=== PATIENT | female | born 1985 | race Caucasian/White ===

== ENCOUNTER 2017-12-15 17:12 | Emergency (ER) | payer MEDICAID ==
[~2017-12-15 17:12] MED LIST: Sodium Chloride 0.9% 10 ML Syringe FLUSH PRN
--- NOTE | 2017-12-15 17:12 | EDM.PDOC ---
ED HPI GENERAL MEDICAL PROBLEM - General Chief Complaint: Chest Pain Stated Complaint: CHEST PAINS AND SOB [id number] Time Seen by Provider: 12/15/17 17:11 Source of Information: Reports: Patient, RN, RN Notes Reviewed History Limitations: Reports: No Limitations - History of Present Illness INITIAL COMMENTS - FREE TEXT/NARRATIVE: C/O sudden onset of chest pain with shortness of breath shortly after she became stressed out dealing with her children. Onset: Today Duration: Constant Location: Reports: Chest Quality: Reports: Pressure Severity: Severe Improves with: Reports: None Worsens with: Reports: None Associated Symptoms: Reports: No Other Symptoms Chest Pain Score (Numeric/FACES): 9 - Related Data Allergies Allergy/AdvReac Type Severity Reaction Status Date / Time No Known Allergies Allergy Verified 12/15/17 17:11 Home Meds: Home Meds . [No Known Home Meds] 08/12/15 [History] Past Medical History Psychiatric History: Reports: Anxiety, Panic Attack - Past Surgical History GI Surgical History: Reports: Colostomy Social & Family History - Family History Family Medical History: Noncontributory - Living Situation & Occupation Living situation: Reports: , with Family ED ROS GENERAL - Review of Systems Review Of Systems: ROS reveals no pertinent complaints other than HPI. ED EXAM, GENERAL - Physical Exam Exam: See Below Exam Limited By: No Limitations General Appearance: Alert, Anxious, Obese Eye Exam: Bilateral Eye: Normal Inspection Ears: Hearing Grossly Normal Nose: Normal Inspection, Normal Mucosa, No Blood Throat/Mouth: Normal Inspection, Normal Lips, Normal Teeth, Normal Gums, Normal Oropharynx, Normal Voice, No Airway Compromise Head: Atraumatic, Normocephalic Neck: Normal Inspection, Supple, Non-Tender, Full Range of Motion. No: Lymphadenopathy (L), Lymphadenopathy (R) Respiratory/Chest: No Respiratory Distress, Lungs Clear, Normal Breath Sounds, No Accessory Muscle Use, Chest Non-Tender Cardiovascular: Normal Peripheral Pulses, Regular Rate, Rhythm, No Edema, No Gallop, No JVD, No Murmur, No Rub GI/Abdominal: Normal Bowel Sounds, Soft, Non-Tender, No Distention, No Abnormal Bruit. No: Guarding, Rigid, Rebound (Female) Exam: Deferred Rectal (Female) Exam: Deferred Back Exam: Normal Inspection Extremities: Normal Inspection, Normal Range of Motion, Non-Tender, Normal Capillary Refill, No Pedal Edema Neurological: Alert, Oriented, CN II-XII Intact, Normal Cognition, Normal Gait, No Motor/Sensory Deficits Psychiatric: Anxious, Tearful Skin Exam: Warm, Dry, Intact, Normal Color, No Rash EKG INTERPRETATION EKG Date: 12/15/17 Time: 17:10 Rhythm: Other (SR) Rate (Beats/Min): 67 [place]: Normal P-Wave: Present QRS: Other (inferior Q-waves) ST-T: Normal QT: Normal Comparison: NA - No Prior EKG Course - Vital Signs Last Recorded V/S: Last Vital Signs Temp 36.4 C 12/15/17 17:18 Pulse 71 12/15/17 17:18 Resp 17 12/15/17 17:18 BP 110/53 L 12/15/17 17:18 Pulse Ox 100 12/15/17 17:18 - Orders/Labs/Meds Orders: Active Orders 24 hr Category Date Time Status EKG 12 Lead [EKG Documentation Completion] [RC] STAT Care 12/15/17 17:13 Active Peripheral IV Care [RC] . DIRECTED Care 12/15/17 17:13 Active HCG QUALITATIVE,URINE [URCHEM] Stat Lab 12/15/17 17:12 Ordered UA W/MICROSCOPIC [URIN] Stat Lab 12/15/17 17:13 Ordered Sodium Chloride 0.9% [Saline Flush] Med 12/15/17 17:12 Active 10 ml FLUSH ASDIRECTED PRN Peripheral IV Insertion Adult [OM.PC] Stat Oth 12/15/17 17:13 Ordered Medication Orders Sodium Chloride (Saline Flush) 10 ml FLUSH ASDIRECTED PRN PRN Reason: Keep Vein Open Last Admin: 12/15/17 17:23 Dose: 10 ml Labs: Laboratory Tests 12/15/17 12/15/17 12/15/17 Range/Units 17:15 17:15 17:15 WBC 7.5 (5.0-10.0) 10^3/uL RBC 4.51 (4.2-5.4) 10^6/uL Hgb 13.2 (12.0-16.0) g/dL Hct 39.8 (37.0-47.0) % MCV 88.2 (80-100) fL MCH 29.3 (27.0-34.0) pg MCHC 33.2 (33.0-35.0) g/dL Plt Count 341 (150-450) 10^3/uL Neut % (Auto) 53.6 (42.2-75.2) % Lymph % (Auto) 36.2 (20.5-50.1) % [place] % (Auto) 9.0 H (2-8) % Eos % (Auto) 0.8 L (1.0-3.0) % Baso % (Auto) 0.4 (0.0-1.0) % PT 9.8 (9.0-12.0) SEC INR 1.0 (0.9-1.2) APTT 25.0 (22.0-34.0) SEC D-Dimer, Quantitative 182 (0-400) ng/mL Sodium 137 (135-145) mmol/L Potassium 3.4 L (3.6-5.0) mmol/L Chloride 104 (101-111) mmol/L Carbon Dioxide 24.0 (21.0-31.0) mmol/L Anion Gap 12.4 BUN 11 (7-18) mg/dL Creatinine 0.8 (0.6-1.3) mg/dL Est Cr Clr Drug Dosing 85.56 mL/min Estimated GFR (MDRD) > 60 BUN/Creatinine Ratio 13.75 Glucose 121 H (74-105) mg/dL Calcium 8.8 (8.4-10.2) mg/dl Total Bilirubin 0.2 (0.2-1.0) mg/dL AST 27 (10-42) IU/L ALT 21 (10-60) IU/L Alkaline Phosphatase 67 (42-121) IU/L Troponin I < 0.02 (0.00-0.02) ng/ml Total Protein 7.3 (6.7-8.2) g/dl Albumin 3.7 (3.2-5.5) g/dl Globulin 3.6 Albumin/Globulin Ratio 1.03 Lipase 34 (22-51) U/L Meds: Medications Generic Name Dose Route Start Last Admin Trade Name Freq PRN Reason Stop Dose Admin Sodium Chloride 10 ml 12/15/17 17:12 12/15/17 17:23 Saline Flush FLUSH 10 ml ASDIRECTED PRN Administration Keep Vein Open Discontinued Medications Generic Name Dose Route Start Last Admin Trade Name Freq PRN Reason Stop Dose Admin Aspirin 324 mg 12/15/17 17:31 12/15/17 17:38 Aspirin PO 12/15/17 17:32 324 mg ONETIME ONE Administration Lorazepam 1 mg 12/15/17 17:31 12/15/17 17:38 Ativan IVPUSH 12/15/17 17:32 1 mg ONETIME ONE Administration - Radiology Interpretation Free Text/Narrative:: CXR: no acute process per Rad. report. Departure - Departure Time of Disposition: 18:40 Disposition: Home, Self-Care 01 Condition: Good Clinical Impression: Non-cardiac chest pain, Generalized anxiety disorder with panic attacks Instructions: Panic Attack, [id number], Nonspecific Chest Pain, [id number] Forms: ED Department Discharge Additional Instructions: Follow up in clinic with your doctor if any further problems. - My Orders Last 24 Hours: My Active Orders 12/15/17 17:12 HCG QUALITATIVE,URINE [URCHEM] Stat Sodium Chloride 0.9% [Saline Flush] 10 ml FLUSH ASDIRECTED PRN 12/15/17 17:13 EKG 12 Lead [EKG Documentation Completion] [RC] STAT Peripheral IV Care [RC] . DIRECTED UA W/MICROSCOPIC [URIN] Stat Peripheral IV Insertion Adult [OM.PC] Stat - Assessment/Plan Last 24 Hours: My Active Orders 12/15/17 17:12 HCG QUALITATIVE,URINE [URCHEM] Stat Sodium Chloride 0.9% [Saline Flush] 10 ml FLUSH ASDIRECTED PRN 12/15/17 17:13 EKG 12 Lead [EKG Documentation Completion] [RC] STAT Peripheral IV Care [RC] . DIRECTED UA W/MICROSCOPIC [URIN] Stat Peripheral IV Insertion Adult [OM.PC] Stat
[2017-12-15 17:19] VITALS: BP 110/53
--- NOTE | 2017-12-15 17:27 | CR ---
Clinical history: 32-year-old female chest pain. Interpretation: (Less than optimal inspiratory effort morbidly obese patient) External cardiac monito r leads. No current signs of heart failure, lung mass or focal lobar pneumonia. Normal midline tracheal airway. Geovanny thorax unremarkable. No atelectasis/collapse. No pneumothorax. CONCLUSION: No acute cardiopulmonary abnormality.
[2017-12-15] MEDS ORDERED: LORazepam 2 MG/ML Syringe IVPUSH ONE (17:31)
[2017-12-15] MEDS ORDERED: Aspirin 81 MG Tab.Chew PO ONE (17:31)
[2017-12-15 17:44] LABS: CHLORIDE,CL 104 mmol/L (101-111); SODIUM,NA 137 mmol/L (135-145)
== END 2017-12-15 18:45 | disposition home or self-care (01) ==
LOC: DL.ED 17:12
DX: F41.1 Generalized anxiety disorder (principal); F41.0 Panic disorder [episodic paroxysmal anxiety]
CPT/HCPCS: 36415; 71045; 80053; 83690; 84484; 85025; 85379; 85610; 85730; 93005; 96374; 99285; A9270; J2060; J7050

== ENCOUNTER 2018-03-02 12:21 | Emergency (ER) | payer MEDICAID ==
[2018-03-02 12:31] VITALS: BP 123/70
[2018-03-02] MEDS ORDERED: Bacitracin Oint 1 GM U/D Packet TOP ONE (12:38)
[2018-03-02] MEDS ORDERED: Lidocaine 1% 30 ML SDV INJECT ONE (12:38)
[2018-03-02] MEDS ORDERED: Morphine 2 MG/ML Syringe IVPUSH ONE (12:38)
[2018-03-02] MEDS ORDERED: Diphtheria,Pertussis(Acell),Tetanus Vaccine 0.5 ML SDV IM ONE (12:41)
[2018-03-02] MEDS ORDERED: HYDROmorphone 0.5 MG/0.5 ML Syringe IVPUSH ONE (13:24)
[2018-03-02] MEDS ORDERED: Lidocaine 1% 30 ML SDV ONE (13:56)
--- NOTE | 2018-03-02 14:27 | CR ---
Clinical history: 32-year-old female injury left knee ("deep laceration"). Interpretation: AP/lateral views left knee reveal no sign of foreign body, intra-articular air or flu id in the suprapatellar bursa (long collection of air in the soft tissues, anteromedially, above the left knee). Symmetric knee joint spacing. Homogeneous normal bone density. No sign of left knee fracture, dislocation or radiopaque loose joint body.
[2018-03-02] MEDS ORDERED: ceFAZolin 1 GM Vial IVPUSH ONE (15:03)
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
[2018-03-02 15:13] LABS: ANION GAP 11.3; CHLORIDE,CL 102 mmol/L (101-111); SODIUM,NA 137 mmol/L (135-145)
== END 2018-03-02 16:04 ==
LOC: DL.ED 12:21
DX: S81.012A Laceration without foreign body, left knee, initial encounter (principal); Z23 Encounter for immunization; W45.8XXA Other foreign body or object entering through skin, initial encounter
CPT/HCPCS: 36415; 73560; 80053; 85025; 90471; 90715; 96374; 96375; 99284; J0690; J1170; J2270

== ENCOUNTER 2024-06-14 16:43 | Emergency (ER) | payer SELFPAY ==
[2024-06-14 17:30] LABS: BASOPHILS PERCENT AUTO 0.1 % (0.0-1.0); EOSINOPHILS PERCENT AUTO 0.2 % (1.0-3.0); HEMATOCRIT 41.7 % (37.0-47.0); HEMOGLOBIN 13.8 g/dL (12.0-16.0); LYMPHOCYTES PERCENT AUTO 4.2 % (20.5-50.1); MEAN CORPUSCULAR HEMOGLOBIN 30.2 pg (27.0-34.0); MEAN CORPUSCULAR HGB CONC 33.1 g/dL (33.0-35.0); MEAN CORPUSCULAR VOLUME 91.2 fL (80-100); MONOCYTES PERCENT AUTO 2.4 % (2-8); NEUTROPHILS PERCENT AUTO 93.1 % (42.2-75.2); O2 DELIVERY DEVICE ROOM AIR; PLATELET COUNT,PLT 334 10^3/uL (150-450); RED BLOOD CELL COUNT 4.57 10^6/uL (4.2-5.4); WHITE BLOOD CELL COUNT,WBC 14.7 10^3/uL (5.0-10.0)
[2024-06-14 17:33] LABS: PCO2 VENOUS 46 mmHg (41-51); PH,VENOUS 7.37 (7.31-7.41); PO2 VENOUS 31 mmHg (35-42)
[2024-06-14 17:34] LABS: BASE EXCESS VENOUS 0.9 mmol/l ((-2)-(+3)); BICARBONATE,VENOUS 26 mmol/l (19-25); O2 SATURATION VENOUS 55.1 % (60-80)
[2024-06-14 17:44] LABS: KETONES,BLOOD NEGATIVE
[2024-06-14 17:50] LABS: APPEARANCE,URINE SLIGHTLY CLOUDY (CLEAR); COLOR,URINE YELLOW (YELLOW); GLUCOSE,URINE NEGATIVE (NEGATIVE); KETONES,URINE NEGATIVE (NEGATIVE); PROTEIN,URINE 30 (NEGATIVE)
[2024-06-14 17:51] LABS: BILIRUBIN,URINE NEGATIVE (NEGATIVE); LEUKOCYTE ESTERASE,URINE SMALL (NEGATIVE); NITRITE,URINE NEGATIVE (NEGATIVE); OCCULT BLOOD,URINE MODERATE (NEGATIVE); UROBILINOGEN,URINE 0.2 mg/dL (0.2-1.0)
[2024-06-14 17:52] LABS: BACTERIA,URINE MANY /HPF (0-FEW/HPF); WBC,URINE 40-50 /HPF (0-5/HPF)
[2024-06-14 17:53] LABS: EPITHELIAL CELLS,URINE MODERATE /HPF (NOT SEEN); MUCUS,URINE OCCASIONAL /LPF (NOT SEEN)
[2024-06-14 17:58] LABS: ALANINE AMINOTRANSFERASE,ALT 26 U/L (14-59); ALBUMIN 3.7 g/dL (3.4-5.0); ALKALINE PHOSPHATASE 89 U/L (46-116); ANION GAP 14.5 mEq/L (7-13); ASPARTATE AMNIOTRANSFERASE,AST 14 U/L (15-37); BILIRUBIN TOTAL 0.5 mg/dL (0.2-1.0); BLOOD UREA NITROGEN,BUN 11 mg/dL (7-18); BUN/CREATININE RATIO 11.2 (No establ ref range); C-REACTIVE PROTEIN 1.57 ng/dL (<=0.50); CALCIUM 9.1 mg/dL (8.5-10.1); CARBON DIOXIDE,CO2 27 mmol/L (21-32); CHLORIDE,CL 103 mmol/L (98-107); CREATININE 0.98 mg/dL (0.55-1.02); ESTIMATED GFR 74 mL/min (>=60); GLUCOSE RANDOM 110 mg/dL (70-99); MAGNESIUM 1.6 mg/dL (1.8-2.4); POTASSIUM,K 3.5 mmol/L (3.5-5.1); PROTEIN TOTAL,TP 7.4 g/dL (6.4-8.2); SODIUM,NA 141 mmol/L (136-145)
[2024-06-14] MEDS ORDERED: Sodium Chloride 0.9% 10 ML Syringe FLUSH PRN (18:06)
[2024-06-14] MEDS: Iopamidol 612 MG/ML 100 ML Bottle IVPUSH ONE (18:06)
[2024-06-14 20:11] VITALS: BP 138/77; PULSE 92
[2024-06-14] MEDS: Piperacillin/Tazobactam 4.5 GM in Sodium Chloride 0.9% 100 ML IV ONE (21:40)
== END 2024-06-14 21:43 ==
LOC: DL.ED 16:43
DX: K82.1 Hydrops of gallbladder (principal); K46.9 Unspecified abdominal hernia without obstruction or gangrene; N10 Acute pyelonephritis; Z93.3 Colostomy status
CPT/HCPCS: 36415; 74177; 80053; 81001; 82009; 82803; 82947; 83605; 83735; 85025; 86140; 87040; 87086; 87088; 87186; 96374; 99285-25; J2543; J3490; Q9967